=== PATIENT | female | born 1985 | race Asian ===

== ENCOUNTER 2017-07-10 02:40 | Inpatient (IN) | payer BC ==
[2017-07-10 03:31] LABS: BASO % 0.1 % (0-2.0); EOS % 0.4 % (0-4.5); HEMATOCRIT 34.1 % (32.4-45.2); HEMOGLOBIN 11.3 GM/dL (10.7-15.3); LYMPH % 17.3 % (8-40); MCH 28.6 pg (25.7-33.7); MCHC 33.2 g/dl (32.0-36.0); MEAN PLT VOLUME 9.9 fl (7.5-11.1); MONO % 5.3 % (3.8-10.2); NEUT % 76.9 % (42.8-82.8); PLATELET COUNT 286 K/MM3 (134-434); RBC 3.96 M/mm3 (3.60-5.2); RDW 14.5 % (11.6-15.6); WHITE BLOOD COUNT 10.7 K/mm3 (4.0-10.0)
[2017-07-10 03:44] LABS: INR 0.98 (0.82-1.09); PROTHROMBIN TIME (PATIENT) 11.1 SEC (9.7-13.0)
[2017-07-10 03:47] LABS: ACTIVATED PTT 26.9 SECONDS (26.9-34.4)
--- NOTE | 2017-07-10 03:48 | HP ---
Past Medical History - Admission History of Present Illness: 31 yo @ 39 2/7 wks by first trimester ultrasound, EDC 07/15/2017 complicated by: 1. Prior CD 2. Breech - s/p ultrasound 07/07/2017 - zara breech EFW 3112 g / 6 lb 14 oz (30%) 3. Travel to [facility] during - declined Zika screen Patient presents with chief complaint of contractions which began at 1730 and increased in frequency and intensity. She reports movement, denies leakage of fluid or vaginal bleeding. History Source: Patient - Past Medical History Cardiovascular: No: HTN Pulmonary: No: Asthma Gastrointestinal: No: GERD ...: 2 ...Para: 1 Heme/Onc: No: Anemia - Past Surgical History Past Surgical History: Yes: Hx Myomectomy: No Hx Transabdominal Cerclage: No - Alcohol/Substance Use Hx Alcohol Use: No - Social History History of Recent Travel: No Family Disease History - Family Disease History Family History: Denies Review of Systems - Review of Systems Constitutional: reports: No Symptoms Cardiovascular: reports: No Symptoms Gastrointestinal: reports: No Symptoms Genitourinary: reports: No Symptoms Breasts: reports: No Symptoms Reported Musculoskeletal: reports: No Symptoms Integumentary: reports: No Symptoms Neurological: reports: No Symptoms Hematology/Lymphatic: reports: No Symptoms Psychiatric: reports: No Symptoms Physical Exam - Maternity Constitutional: Yes: Well Nourished, No Distress, Calm Cardiovascular: Yes: Regular Rate and Rhythm Lungs: Clear to auscultation - Abdominal Exam/OB Fundal Height: 39 Number of Fetuses: Single Presentation: Breech Regularity: Regular Category: I Accelerations: Non-Uniform Decelerations: None - Vaginal Exam/OB Vaginal Bleediing: No Dilatation (cm): 1 Effacement (%): 20 Amniotic Membrane Status: Intact Station: -3 - Physical Exam Musculoskeletal: Yes: WNL Edema: No Integumentary: Yes: Body Piercing, Bruising, Erythema - Labs Lab Results: PNL: O pos, antibody neg; RPR NR; HIV neg; sequential screen 1 &2 neg; HBS Ag neg; HCV neg; GBS neg; GCT WNL Hemorrhage Risk Assessment - Risk Factors Medium Risk Factors: Yes: Prior , uterine surgery,or multiple laparotomies High Risk Factors: Yes: None Risk Score: 1 Risk Level: Medium Risk Assessment/Plan 31 yo @ 39 2/7 wks, labor, zara breech, prior CD for repeat CD 1. Admit to L&D 2. Consents reviewed and signed. Discussed risks including but not limited to infection, bleeding requiring transfusion and damage to surrounding organs such as the bowel or bladder. Discussed risk of injury to infant. Discussed risk of wound infection and separation. Discussed need for planning of future children and possibility of abnormal placentation. All questions answered. Patient expressed understanding. 3. GBS negative 4. Category I FHT 5. Nursing and anesthesia notified
[2017-07-10 03:51] LABS: ANION GAP 9 (8-16); BLOOD UREA NITROGEN 9 mg/dL (7-18); CALCIUM 8.5 mg/dL (8.5-10.1); CHLORIDE 105 mmol/L (98-107); CO2 21 mmol/L (21-32); CREATININE 0.6 mg/dL (0.55-1.02); GLUCOSE,RANDOM 81 mg/dL (74-106); POTASSIUM 4.2 mmol/L (3.5-5.1); SODIUM 135 mmol/L (136-145)
[2017-07-10] MEDS ORDERED: CITRIC ACID/SODIUM CITRATE 30 ML UNIT-DOSE CUP PO ONE (04:00)
[2017-07-10] MEDS ORDERED: OXYTOCIN 20 UNITS in 0.9% NS 20 UNIT/1,000 ML INFUS.BAG IV ONE (04:26)
[2017-07-10] MEDS ORDERED: ePHEDrine SULFATE 50 MG/1 ML AMPULE ONE (04:29)
[2017-07-10] MEDS ORDERED: morphine SULFATE/Preservative Free 0.5 MG/ML (1cc Syringe) ONE (04:29)
[2017-07-10] MEDS ORDERED: BUPIVACAINE 0.75% IN DEXTROSE/PF 2ML AMPULE NR ONE (04:31)
[2017-07-10] MEDS ORDERED: ceFAZolin SODIUM 1 GM VIAL ONE (04:33)
[2017-07-10] MEDS ORDERED: OXYTOCIN 10 UNITS/ML VIAL ONE (04:56)
[2017-07-10 05:01] VITALS: BMI 29.6
[2017-07-10 06:02] LABS: VENOUS PC02 55.1 mmHg (38-52); VENOUS PO2 37.8 mmHg (28-48)
[2017-07-10 06:03] LABS: VENOUS PH 7.17 (7.32-7.42)
[2017-07-10] MEDS ORDERED: METHYLERGONOVINE MALEATE 0.2 MG/1 ML AMP IM PRN (06:05)
--- NOTE | 2017-07-10 06:05 | PN ---
Delivery - Delivery Section: Repeat EBL (cc): 500 Delivery, Single - Condition of Infant Gender: Male Weight: 6 lb 14 oz - 1 Minute Total Score: 6 5 Minutes Total Score: 9 - [place] Feeding Plan Initial Plan: Elected not to breastfeed exclusively throughout hospitalization Remarks - Remarks Remarks: Surgeon: Patrick; Assist: Hipple Anesthesia: Spinal, Dr. Hansen Findings: Male , Right Sacrum Transverse, zara breech position, APGARs 6 , 9; wt 6 lb 14 oz; 18.5 inches; normal tubes and ovaries bilaterally Fluids: 1100 EBL: 500 UOP 500 Dictation [id number]
--- NOTE | 2017-07-10 06:11 | PN ---
Progress Note (short form) - Note Progress Note: Informed patient of needle stick injury with clean suture needle through soiled glove. Needle was removed from field. Patient gives consent to draw HIV, Hep B and Hep C
[2017-07-10] MEDS ORDERED: ONDANSETRON 4 MG/2 ML VIAL IVPUSH PRN (06:13)
[2017-07-10] MEDS ORDERED: DEXTROSE 5%-LACTATED RINGERS 1,000 ML IV SCH (06:15)
[2017-07-10] MEDS ORDERED: OXYTOCIN 20 UNITS in 0.9% NS 20 UNIT/1,000 ML INFUS.BAG IV SCH (06:15)
[2017-07-10] MEDS ORDERED: TUBERCULIN PPD 5 TU/0.1ML SYRINGE (IN PATIENT USE ONLY) ID ONE (08:45)
[2017-07-10] MEDS ORDERED: IBUPROFEN 800 MG/8 ML IJ IVPB PRN (12:35)
[2017-07-10] MEDS ORDERED: oxyCODONE HCL 5 MG TABLET PO PRN ×2 (12:37)
[2017-07-10] MEDS: ACETAMINOPHEN 325 MG TABLET (FP) PO PRN (23:30)
[2017-07-10] MEDS: IBUPROFEN 600 MG TABLET (FP) PO PRN (23:30)
[2017-07-11] MEDS: IBUPROFEN 600 MG TABLET (FP) PO PRN ×3 (03:05→20:51)
[2017-07-11] MEDS: ACETAMINOPHEN 325 MG TABLET (FP) PO PRN ×3 (03:06→20:51)
[2017-07-11] MEDS ORDERED: BISACODYL 10 MG SUPP.RECT RC PRN (06:05)
[2017-07-11 07:19] LABS: BASO % 0.3 % (0-2.0); EOS % 0.4 % (0-4.5); HEMATOCRIT 31.1 % (32.4-45.2); HEMOGLOBIN 10.4 GM/dL (10.7-15.3); LYMPH % 17.7 % (8-40); MCH 28.9 pg (25.7-33.7); MCHC 33.5 g/dl (32.0-36.0); MEAN CELL VOLUME 86.2 fl (80-96); MEAN PLT VOLUME 9.5 fl (7.5-11.1); MONO % 4.8 % (3.8-10.2); NEUT % 76.8 % (42.8-82.8); PLATELET COUNT 260 K/MM3 (134-434); RDW 14.1 % (11.6-15.6); WHITE BLOOD COUNT 9.2 K/mm3 (4.0-10.0)
--- NOTE | 2017-07-11 08:30 | PN ---
Post Progress Note - Subjective Subjective: Patient without acute complaints. Tolerating clears, without complaints of nausea or vomiting. No ambulation yet. Denies fevers or chills. without difficulty Pain well controlled Moreau removed this AM, voiding without issue. Passing flatus. Post Day: 1 Type of Delivery: Repeat C/S Vital Signs: Vital Signs Temperature 97.9 F 07/11/17 08:02 Pulse Rate 71 07/11/17 08:02 Respiratory Rate 20 07/11/17 08:02 Blood Pressure 106/64 07/11/17 08:02 O2 Sat by Pulse Oximetry (%) 100 07/10/17 06:30 Breast Exam: Yes: Soft Uterus: Yes: Fundus Firm Incision: Yes: Dressing dry and intact Abdomen/GI: Yes: Abdomen soft, Tender (mild incisional), Passing flatus, Tolerating PO. No: Abdominal Distention Lochia: Yes: Serosa Lochia, amount: Small Extremities: Yes: Calves non-tender. No: Edema Activity: Ambulating - Labs Labs: CBC WBC 9.2 K/mm3 (4.0-10.0) 07/11/17 06:57 RBC 3.60 M/mm3 (3.60-5.2) 07/11/17 06:57 Hgb 10.4 GM/dL (10.7-15.3) L 07/11/17 06:57 Hct 31.1 % (32.4-45.2) L 07/11/17 06:57 MCV 86.2 fl (80-96) 07/11/17 06:57 MCH 28.9 pg (25.7-33.7) 07/11/17 06:57 MCHC 33.5 g/dl (32.0-36.0) 07/11/17 06:57 RDW 14.1 % (11.6-15.6) 07/11/17 06:57 Plt Count 260 K/MM3 (134-434) 07/11/17 06:57 MPV 9.5 fl (7.5-11.1) 07/11/17 06:57 Neutrophils % 76.8 % (42.8-82.8) 07/11/17 06:57 Lymphocytes % 17.7 % (8-40) 07/11/17 06:57 Monocytes % 4.8 % (3.8-10.2) 07/11/17 06:57 Eosinophils % 0.4 % (0-4.5) 07/11/17 06:57 Basophils % 0.3 % (0-2.0) 07/11/17 06:57 Nucleated RBC % 0 % (0-0) 07/11/17 06:57 Assessment/Plan 31 yo PPD # 1 s/p repeat CD, afebrile, vital signs stable, donig well 1. Continue routine postoperative care. 2. AM CBC without signs of anemia 3. Rh positive status, no rhogam indicated. 4. Encourage ambulation and incentive spirometer use 5. Continue oral pain medication 6. Anticipate discharge home postoperative day #3 or #4
--- NOTE | 2017-07-11 08:44 | PN ---
Progress Note (short form) - Note Progress Note: Post op day#1.S/P C section under spinal anesthesia with duramorph uneventful.Patient stable and has little pain for which she is on medication.No any anesthesia related problem.Patient DC from the anesthesia care.
[2017-07-11] MEDS ORDERED: DIPHTH,PERTUSS(ACELL),TET 0.5 ML DISP.SYRIN IM ONE (10:00)
[2017-07-11] MEDS: SIMETHICONE 80 MG TAB.CHEW (FP) PO PRN ×2 (11:47→20:51)
--- NOTE | 2017-07-11 17:15 | PN ---
Progress Note (short form) - Note Progress Note: Patient states desires circumcision for infant. Discussed risks including infection, bleeding, damage to tip of penis, and unsatisfactory result, resulting in surgical repair or repeat circumcision. Patient expressed understanding and consents to procedure. Reviewed infants chart, normal genitalia per hose builder, MARISSA Zaragoza.
[2017-07-12] MEDS: SIMETHICONE 80 MG TAB.CHEW (FP) PO PRN ×4 (02:39→21:35)
[2017-07-12] MEDS: IBUPROFEN 600 MG TABLET (FP) PO PRN ×4 (02:39→21:36)
[2017-07-12] MEDS: ACETAMINOPHEN 325 MG TABLET (FP) PO PRN ×3 (02:40→21:35)
--- NOTE | 2017-07-12 10:07 | PN ---
Post Progress Note - Subjective Subjective: No complaints, ambulating well, pain is well controlled. Post Day: 2 Type of Delivery: Repeat C/S Vital Signs: Vital Signs Temperature 98.7 F 07/12/17 09:03 Pulse Rate 85 07/12/17 09:03 Respiratory Rate 20 07/12/17 09:03 Blood Pressure 105/76 07/12/17 09:03 O2 Sat by Pulse Oximetry (%) 100 07/10/17 06:30 Breast Exam: Yes: Soft Uterus: Yes: Fundus Firm, Fundus below umbilicus, Non-tender Incision: Yes: Dressing dry and intact, Sutures intact Abdomen/GI: Yes: Abdomen soft, Passing flatus, Tolerating PO Lochia: Yes: Rubra Lochia, amount: Small Extremities: Yes: Calves non-tender Perineum: Yes: Intact Activity: Ambulating - Labs Labs: CBC WBC 9.2 K/mm3 (4.0-10.0) 07/11/17 06:57 RBC 3.60 M/mm3 (3.60-5.2) 07/11/17 06:57 Hgb 10.4 GM/dL (10.7-15.3) L 07/11/17 06:57 Hct 31.1 % (32.4-45.2) L 07/11/17 06:57 MCV 86.2 fl (80-96) 07/11/17 06:57 MCH 28.9 pg (25.7-33.7) 07/11/17 06:57 MCHC 33.5 g/dl (32.0-36.0) 07/11/17 06:57 RDW 14.1 % (11.6-15.6) 07/11/17 06:57 Plt Count 260 K/MM3 (134-434) 07/11/17 06:57 MPV 9.5 fl (7.5-11.1) 07/11/17 06:57 Neutrophils % 76.8 % (42.8-82.8) 07/11/17 06:57 Lymphocytes % 17.7 % (8-40) 07/11/17 06:57 Monocytes % 4.8 % (3.8-10.2) 07/11/17 06:57 Eosinophils % 0.4 % (0-4.5) 07/11/17 06:57 Basophils % 0.3 % (0-2.0) 07/11/17 06:57 Nucleated RBC % 0 % (0-0) 07/11/17 06:57 Assessment/Plan 31yo P2 s/p repeat LT C/S, doing well stable, afebrile. The pt is asymptomatic for s/sxs of anemia. care instructions reviewed. Continue routine postop care. Ambulation encouraged.
--- NOTE | 2017-07-12 10:09 | OP ---
DATE OF OPERATION: 07/10/2017 PREOPERATIVE DIAGNOSIS: Intrauterine at 39 weeks, zara breech position, prior section, in labor. POSTOPERATIVE DIAGNOSIS: Intrauterine at 39 weeks, zara breech position, prior section, in labor. SURGEON: Susan Nguyen M.D. MARKETING PROFESSOR: Monet Mcclelland DO ANESTHESIOLOGIST: Evangelist Hansen DO ANESTHESIA: Spinal. ESTIMATED BLOOD LOSS: 500. URINE OUTPUT: 500. INTRAVENOUS FLUIDS GIVEN: 1100 mL. INDICATIONS: The patient is a 31-year-old 2, para 1, with a history of prior , with zara breech position on ultrasound, presenting with contractions, found to be in early labor. She was counseled regarding the risks, benefits, alternatives and complications of the procedure, including infection, bleeding, damage to surrounding organs, such as bowel and bladder, and injury to baby. She expressed understanding and was brought to the operating room. DESCRIPTION OF PROCEDURE: When anesthesia was found to be adequate, the patient was prepped and draped in the normal sterile fashion and placed in the dorsal supine position with a leftward tilt. An approximately 11-cm skin incision was made along the previous scar, and the scar was removed without difficulty. The incision was extended to the fascia, which was entered sharply and extended laterally using Hill scissors. Attention was brought to the inferior portion of the fascial incision, which was tented up using Louis clamps and resected off the underlying rectus muscles using the Hill scissors. Attention was brought to the superior portion of the fascial incision, where, in a similar fashion, it was tented up using Louis clamps and dissected off the underlying rectus muscles using Hill scissors. The rectus muscles were in the midline, and the peritoneal cavity was entered bluntly. The vesicouterine peritoneum was identified, entered sharply, and a bladder flap was created digitally. Hysterotomy was performed and extended laterally using bandage scissors. The 's buttocks were found to be in the right sacrum transverse, and this was brought to the hysterotomy site. The right shoulder was delivered without issue. The left shoulder was delivered without issue. Then the head was flexed, and the head was delivered without issue. The cord was clamped and cut. The was handed to awaiting NICU staff present for delivery. The hysterotomy was repaired using 0 Biosyn in running fashion with the 2nd layer was an imbricated layer. The vesicouterine peritoneum was reapproximated using 2-0 Biosyn in a running fashion. The fascia was closed using 0 Biosyn in a running fashion. The subcutaneous fat was closed using 0 Vicryl in a running fashion and 2-0 Vicryl in a running fashion. The skin was closed using 3-0 Vicryl in a subcuticular fashion. The patient tolerated the procedure well. Estimated blood loss was 500 mL. The patient was brought to the recovery room in stable condition. Adrian [id number] MTDD
[2017-07-12 16:21] LABS: HBsAG SCREEN Negative (Negative)
[2017-07-13] MEDS: ACETAMINOPHEN 325 MG TABLET (FP) PO PRN ×2 (05:00→10:18)
[2017-07-13] MEDS: IBUPROFEN 600 MG TABLET (FP) PO PRN ×2 (05:00→10:18)
[2017-07-13] MEDS: SIMETHICONE 80 MG TAB.CHEW (FP) PO PRN ×2 (05:01→10:19)
--- NOTE | 2017-07-13 07:48 | PN ---
Post Progress Note - Subjective Subjective: No complaints Post Day: 3 Type of Delivery: Repeat C/S Vital Signs: Vital Signs Temperature 98.3 F 07/12/17 21:29 Pulse Rate 88 07/12/17 21:29 Respiratory Rate 20 07/12/17 21:29 Blood Pressure 128/71 07/12/17 21:29 O2 Sat by Pulse Oximetry (%) 100 07/10/17 06:30 Breast Exam: Yes: Soft Uterus: Yes: Fundus Firm, Fundus below umbilicus, Non-tender Incision: Yes: Sutures intact Abdomen/GI: Yes: Abdomen soft, Passing flatus, Tolerating PO Lochia: Yes: Rubra Lochia, amount: Small Extremities: Yes: Calves non-tender Perineum: Yes: Intact Activity: Ambulating - Labs Labs: CBC WBC 9.2 K/mm3 (4.0-10.0) 07/11/17 06:57 RBC 3.60 M/mm3 (3.60-5.2) 07/11/17 06:57 Hgb 10.4 GM/dL (10.7-15.3) L 07/11/17 06:57 Hct 31.1 % (32.4-45.2) L 07/11/17 06:57 MCV 86.2 fl (80-96) 07/11/17 06:57 MCH 28.9 pg (25.7-33.7) 07/11/17 06:57 MCHC 33.5 g/dl (32.0-36.0) 07/11/17 06:57 RDW 14.1 % (11.6-15.6) 07/11/17 06:57 Plt Count 260 K/MM3 (134-434) 07/11/17 06:57 MPV 9.5 fl (7.5-11.1) 07/11/17 06:57 Neutrophils % 76.8 % (42.8-82.8) 07/11/17 06:57 Lymphocytes % 17.7 % (8-40) 07/11/17 06:57 Monocytes % 4.8 % (3.8-10.2) 07/11/17 06:57 Eosinophils % 0.4 % (0-4.5) 07/11/17 06:57 Basophils % 0.3 % (0-2.0) 07/11/17 06:57 Nucleated RBC % 0 % (0-0) 07/11/17 06:57 Assessment/Plan 31yo P2 s/p repeat LT C/S, doing well stable, afebrile. The pt is asymptomatic for s/sxs of anemia. care instructions reviewed. Continue routine postop care. Ambulation encouraged. Plan to d/c home today
[2017-07-13 09:01] LABS: BASO % 0.2 % (0-2.0); EOS % 0.9 % (0-4.5); HEMATOCRIT 30.9 % (32.4-45.2); HEMOGLOBIN 10.1 GM/dL (10.7-15.3); LYMPH % 12.4 % (8-40); MCH 28.8 pg (25.7-33.7); MCHC 32.7 g/dl (32.0-36.0); MEAN PLT VOLUME 9.4 fl (7.5-11.1); MONO % 4.1 % (3.8-10.2); NEUT % 82.4 % (42.8-82.8); PLATELET COUNT 292 K/MM3 (134-434); RBC 3.51 M/mm3 (3.60-5.2); RDW 14.5 % (11.6-15.6); WHITE BLOOD COUNT 10.3 K/mm3 (4.0-10.0)
[2017-07-13 09:23] VITALS: BP 125/87; PULSE 93; TEMP 97.8
--- NOTE | 2017-07-18 15:57 | PATH ---
Surgical Pathology Report Patient Name: MEHRAN TSE [facility]. Rec. 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 TRIVASCULAR CORD. MEMBRANES WITH NO DIAGNOSTIC ABNORMALITIES. Electronically Signed Margo Edwards M.D. Gross Description The specimen is received fresh labeled placenta and is a 449 gram, 23.0 x 14.0 x 2.5 cm. placenta with attached membranes and umbilical cord. The attached membranes are lam, translucent with focal opacities and insert marginally. The umbilical cord measures 16 cm. in length and averages 1 cm. in diameter. The cord inserts eccentrically, 3 cm. to the nearest margin. No true knots or strictures are identified. Cut surface of the umbilical cord reveals 3 vessels. The surface is oliva-blue with minimal fibrin deposition and appropriate caliber vessels. The maternal surface is red-brown with focal defects. Sectioning reveals red-brown, spongy parenchyma. No lesions are identified. Experimental Rocket Sled Mechanic sections are submitted in three cassettes as follows: 1- membrane rolls and umbilical cord; 2-3- full thickness sections of placenta. /07/15/2017 [facility]07/15/2017
== END 2017-07-13 11:15 | disposition home or self-care (01) | DRG 766 ==
LOC: JDEL 02:40 → JLDR 03:00 → J3W 08:11
PROVIDERS: ADMIT Obstetrics & Gynecology; ATTEND Obstetrics & Gynecology
PROC: 10D00Z1 Extraction of Products of Conception, Low, Open Approach (ICD-10-PCS; principal; 2017-07-10)
DX: O34.211 Maternal care for low transverse scar from previous cesarean delivery (principal); O32.1XX0 Maternal care for breech presentation, not applicable or unspecified; Z3A.39 39 weeks gestation of pregnancy; Z37.0 Single live birth
CPT/HCPCS: 36415; 71046-TC-FY; 80048; 82803; 85025; 85610; 85730; 86593; 86850; 86900; 86901; 87340; 87389; 88307-TC; 90715

== ENCOUNTER 2019-09-25 14:25 | Inpatient (IN) | payer BC ==
[2019-09-25] MEDS ORDERED: ELECTROLYTE-148 SOLN 500 ML IV ONE (15:00)
[2019-09-25 15:25] LABS: BASO % 0.2 % (0-2.0); EOS % 0.3 % (0-4.5); HEMOGLOBIN 9.1 GM/dL (10.7-15.3); LYMPH % 14.8 % (8-40); MCH 27.8 pg (25.7-33.7); MCHC 32.5 g/dl (32.0-36.0); MEAN CELL VOLUME 85.6 fl (80-96); MEAN PLT VOLUME 10.3 fl (7.5-11.1); NEUT % 78.7 % (42.8-82.8); PLATELET COUNT 206 K/MM3 (134-434); RBC 3.27 M/mm3 (3.60-5.2); RDW 14.7 % (11.6-15.6); WHITE BLOOD COUNT 8.5 K/mm3 (4.0-10.0)
[2019-09-25] MEDS ORDERED: ELECTROLYTE-148 SOLN 1,000 ML IV SCH ×2 (15:30→18:45)
[2019-09-25 15:39] LABS: INR 0.94 (0.83-1.09); PROTHROMBIN TIME (PATIENT) 11.1 SEC (9.7-13.0)
[2019-09-25 15:41] LABS: ACTIVATED PTT 25.3 SECONDS (25.2-36.5)
[2019-09-25 15:53] LABS: BLOOD UREA NITROGEN 11.8 mg/dL (7-18); CALCIUM 7.9 mg/dL (8.5-10.1); CREATININE 0.6 mg/dL (0.55-1.3); POTASSIUM 3.8 mmol/L (3.5-5.1)
[2019-09-25 16:14] VITALS: BMI 27.3
[2019-09-25] MEDS ORDERED: CITRIC ACID/SODIUM CITRATE 30 ML UNIT-DOSE CUP PO ONE (16:45)
[2019-09-25] MEDS ORDERED: morphine SULFATE/PF 0.5 MG/ML (2cc Syringe - QUVA) ONE (18:35)
--- NOTE | 2019-09-25 18:45 | HP ---
Past Medical History - Primary Care Physician PCP:: Shaheed Stahl - Admission Chief Complaint: 34yo P2 with EGA 38w6d with prior C/S x 2 admitted with spontaneous labor. History of Present Illness: Spontaneous labor. 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: Alzheimer's, CVA, Dementia, Migraine, Multiple Sclerosis, Peripheral Neuropathy, Parkinson's, Seizure, Syncope, TIA, Vertigo, Other Cardiovascular: No: AFIB, Aneurysm, Aortic Insufficiency, Aortic Stenosis, CAD, CHF, Deep Vein Thrombosis, HTN, Hyperlipdemia, IL, Mitral Insufficiency, Mitral Stenosis, Murmur, Pulmonary Hypertension, Other Pulmonary: No: Asthma, Bronchitis, Cancer, COPD, O2 Dependent, Pneumonia, Previously Intubated, Pulmonary Embolus, Pulmonary Fibrosis, Sleep Apnea, Other Gastrointestinal: No: Ascites, Cancer, Constipation, Crohn's Disease, Diverticulitis, Diverticulosis, Esophageal Varices, Gastritis, GERD, GI Bleed, Hemorrhoids, Hiatal Hernia, Inflamatory Bowel Disease, Irritable Bowel Disease, Pancreatitis, Peptic Ulcer Disease, Ulcerative Colitis, Other Hepatobiliary: No: Cirrhosis, Cholelithiasis, Cholecystitis, Choledocholithiasis, Hepatitis A, Hepatitis B, Hepatitis C, Other Renal/: No: Renal Failure, Renal Inusuff, BPH, Cancer, Hematuria, Hemodialysis, Neurogenic Bladder, Renal Calculi, UTI, Other Reproductive: No: Ectopic , Endometriosis, Fibroids, PID, Polycystic Ovary Syndrome, Postmenopausal, Other ...: 3 ...Para: 2 ...Term: 2 ...: 0 ...Spon : 0 ...Induced : 0 ...Living Children: 2 ...Multiple Gestation: 0 ...LMP: 12/24/18 ... Weeks Gestation by Dates: 38.6 ...EDC by Dates: 10/03/19 Heme/Onc: Yes: Anemia Infectious Disease: No: AIDS, C-Diff, Herpes Zoster, HIV, MRSA, STD's, Tuberculosis, VREF, Other Psych: No: Addictions, Anxiety, Bipolar, Depression, Panic, Psychosis, Schizophrenia, Other Musculoskeletal: No: Bursitis, Chronic low back pain, Hemiparesis, Hemiplegia, Osteoarthritis, Paraplegia, Other Rheumatology: No: Fibromyalgia, Gout, Lupus, Rheumatoid Arthritis, Sarcoidosis, Vasculitis, Other ENT: No: Allergic Rhinitis, Sinusitis, Other Endocrine: No: Shaan's Disease, Ida's Disease, Diabetes Insipidus, Diabetes Mellitus, Hyperparathyroidism, Hyperthyroidism, Hypothyroidism, Osteopenia, SIADH, Other Dermatology: No: Basal Cell, Cellulitis, Eczema, Melanoma, Psoriasis, Squamous Cell, Other - Past Surgical History Past Surgical History: Yes: Hx Myomectomy: No Hx Transabdominal Cerclage: No - Smoking History Smoking history: Never smoked Have you smoked in the past 12 months: No Aproximately how many cigarettes per day: 0 - Alcohol/Substance Use Hx Alcohol Use: No History of Substance Use: reports: None - Social History Usual Living Arrangement: Yes: With Spouse, With Child Do you think of yourself as: Straight/Heterosexual ADL: Independent Occupation: Front End Manager at [employer] History of Recent Travel: No Home Medications - Allergies Allergies/Adverse Reactions: Allergies Allergy/AdvReac Type Severity Reaction Status Date / Time No Known Allergies Allergy Verified 09/25/19 15:49 - Home Medications Home Medications: Ambulatory Orders No115/Iron/Folic Acid [ 19 Chewable Tablet] 1 each PO DAILY 09/25/19 Family Medical History Family History: Unremarkable Review of Systems - Review of Systems Constitutional: reports: No Symptoms Eyes: reports: No Symptoms HENT: reports: No Symptoms Neck: reports: No Symptoms Cardiovascular: reports: No Symptoms Respiratory: reports: No Symptoms Gastrointestinal: reports: No Symptoms Genitourinary: reports: No Symptoms Breasts: reports: No Symptoms Reported Musculoskeletal: reports: No Symptoms Integumentary: reports: No Symptoms Neurological: reports: No Symptoms Endocrine: reports: No Symptoms Hematology/Lymphatic: reports: No Symptoms Psychiatric: reports: No Symptoms Pain Intensity: 6 (contractions) Physical Exam - Maternity Vital Signs: Vital Signs Temperature 98.4 F 09/25/19 18:00 Pulse Rate 77 09/25/19 18:00 Respiratory Rate 09/25/19 18:00 Blood Pressure 135/80 09/25/19 18:00 O2 Sat by Pulse Oximetry (%) Constitutional: Yes: Well Nourished, No Distress, Calm Eyes: Yes: WNL, Conjunctiva Clear, EOM Intact HENT: Yes: WNL, Atraumatic, Normocephalic Neck: Yes: WNL, Supple, Trachea Midline Cardiovascular: Yes: WNL, Regular Rate and Rhythm Lungs: Clear to auscultation, Normal air movement - Abdominal Exam/OB Fundal Height: 39 Number of Fetuses: Single Presentation: Vertex Contractions: Yes Regularity: Irregular Intensity: Mild/Mod Monitor Mode: External Heart Rate (range): 140 Heart Rate Location: Midline Category: I Accelerations: Non-Uniform Decelerations: None - Vaginal Exam/OB Vaginal Bleeding: No Speculum Exam: No Dilatation (cm): 0 Effacement (%): 0 Amniotic Membrane Status: Intact Presentation: Vertex/Position Station: -4 - Physical Exam Musculoskeletal: Yes: WNL Extremities: Yes: WNL Edema: No Integumentary: Yes: WNL Deep Tendon Reflex Grade: Normal +2 ...Motor Strength: WNL Psychiatric: Yes: WNL, Alert, Oriented - Labs Lab Results: CBC, BMP 09/25/19 13:13 09/25/19 13:13 Hemorrhage Risk Assessment - Risk Factors Medium Risk Factors: Yes: Prior , uterine surgery,or multiple laparotomies, Hematocrit < 30% & other Risk Score: 2 Risk Level: High Risk Assessment/Plan: Cross x 2 units PRBC Imaging - Results Ultrasound: Report Reviewed Assessment/Plan 34yo P2 with EGA 38w6d with prior C/S x 2 admitted with spontaneous labor. The decision was made to proceed with delivery by C/S. We discussed the risks and benefits of C/S at length, including but not limited to scarring, pain, b leeding, infection, injury to underlying organs and structures, need for additional surgery to repair/treat any problems or complications, complications/injuries, etc. The pt verbalized her understanding and requested to proceed with surgery. The pt is aware that all surgeries have risks and no guarantees can be provided.
[2019-09-25] MEDS ORDERED: IBUPROFEN 800 MG/8 ML IJ IVPB PRN (20:53)
[2019-09-25] MEDS ORDERED: WITCH HAZEL 50% (TUCKS) 40 PAD/JAR PAD TP PRN (20:53)
[2019-09-25] MEDS ORDERED: METHYLERGONOVINE MALEATE 0.2 MG/1 ML AMP IM PRN (20:53)
[2019-09-25] MEDS ORDERED: BENZOCAINE 20% 57 GM BOTTLE TP PRN (20:53)
[2019-09-25] MEDS ORDERED: OXYTOCIN 20 UNITS in 0.9% NS 20 UNIT/1,000 ML INFUS.BAG IV SCH (21:00)
--- NOTE | 2019-09-25 21:16 | OP ---
Operative Note - Note: Operative Date: 09/25/19 Pre-Operative Diagnosis: at EGA 38w6d with spontaneous labor. Prior C/S x 2 Operation: Repeat LT C/S Findings: Live baby girl in vtx presentation. No meconium in amniotic fluid. Nuchal cord x 1. 9-9. Weight 6lb 7oz. Normal uterus, ovaries, tubes. Post-Operative Diagnosis: Same as Pre-op Surgeon: Shaheed Stahl Learning Operations Specialist: Marcio Blake Anesthesiologist/CENTER SALES AND SERVICE ASSOCIATE: Blanco Dixon Anesthesia: Spinal Specimens Removed: Placenta Estimated Blood Loss (mls): 600 Drains & Tubes with Location: Moreau Cath Drains, Volume Out (mls): 500 Blood Volume Replaced (mls): 0 Fluid Volume Replaced (mls): 1,400 Operative Report Dictated: Yes
[2019-09-26 08:33] LABS: BASO % 0.2 % (0-2.0); EOS % 0.3 % (0-4.5); HEMATOCRIT 29.5 % (32.4-45.2); HEMOGLOBIN 9.4 GM/dL (10.7-15.3); LYMPH % 12.2 % (8-40); MCH 27.5 pg (25.7-33.7); MEAN CELL VOLUME 85.9 fl (80-96); MEAN PLT VOLUME 10.4 fl (7.5-11.1); MONO % 4.3 % (3.8-10.2); PLATELET COUNT 222 K/MM3 (134-434); RBC 3.43 M/mm3 (3.60-5.2); RDW 14.8 % (11.6-15.6); WHITE BLOOD COUNT 10.4 K/mm3 (4.0-10.0)
[2019-09-26] MEDS: ENOXAPARIN NA (PORCINE) 40 MG/0.4 ML DISP.SYRIN SQ SCH (09:30)
[2019-09-26] MEDS: PRENATAL VITAMINS W/ FOLIC ACID TABLET (FP) PO SCH (09:38)
--- NOTE | 2019-09-26 11:00 | PN ---
Progress Note (short form) - Note Progress Note: Anesthesia postop note 34 y/o Fs/p spinal anesthesia/duramorph POD#1, vss, aaox3, pain well controlled, sensory motor intact distally. No anesthesia complications.
--- NOTE | 2019-09-26 11:12 | OP ---
DATE OF OPERATION: 09/25/2019 PREOPERATIVE DIAGNOSES: 1. at estimated gestational age of 38 weeks and 6 days. 2. Spontaneous labor. 3. Previous 2 sections. POSTOPERATIVE DIAGNOSES: 1. at estimated gestational age of 38 weeks and 6 days. 2. Spontaneous labor. 3. Previous 2 sections. PROCEDURE: Repeat low transverse section via Pfannenstiel skin incision. SURGEON: Marquita Stahl MD HIDE SELECTOR: JOYCE Goldman ANESTHESIOLOGIST: Blanco Dixon MD ANESTHESIA: Spinal. COMPLICATIONS: None. PATHOLOGY: Placenta. ESTIMATED BLOOD LOSS: 600 mL. INTRAVENOUS FLUIDS: 1400 mL. URINE OUTPUT: Clear urine 500 mL at the end of the procedure. FINDINGS: Live baby girl in vertex presentation. No meconium noted in amniotic fluids. There was a nuchal cord wrapped around once and released without difficulty. Apgars 9 and 9. Baby's weight 6 pounds and 7 ounces. Normal uterus, ovaries and fallopian tubes. PROCEDURE: The patient was met preoperatively. Risks, benefits and alternatives of surgery were discussed in details. All questions were answered. The consent form was reviewed and discussed. The patient verbalized her understanding and requested to proceed with the surgery. The patient was brought to the OR with the IV running. She was placed on the surgical table in the sitting position. The spinal anesthesia was achieved without difficulty. The patient was then placed in a supine position with a leftward tilt. A Moreau catheter was left to drain to gravity. The patient was prepped and draped in the usual sterile fashion. A timeout procedure was conducted as per standard protocol. The surgeons then proceeded with the operation. A Pfannenstiel skin incision was made along the prior scar. The incision was carried down to the level of fascia. The fascia was incised in the midline and the incision was extended bilaterally using Hill scissors. The fascia was dissected away from the rectus muscles superiorly and inferiorly using sharp dissection. The rectus muscles were in the midline using sharp dissection. The peritoneum was entered sharply. The peritoneal incision was extended superiorly and inferiorly using Metzenbaum scissors. The bladder peritoneum was then dissected away from the lower uterine segment using sharp dissection. The bladder was reflected downwards using a Buckner retractor. The lower uterine segment was incised transversely. The incision was extended bilaterally using bandage scissors. The baby was delivered from vertex presentation without complications. The umbilical cord was clamped and cut. The baby was crying spontaneously and was handed to the waiting landfill gas technician. The placenta was delivered with manual extraction. The placenta was sent to Pathology. The uterus was cleared of all clots and debris using laparotomy laps. The uterine incision was repaired using a 0 Biosyn suture. The uterine incision was imbricated using a secondary closure with a 0 Biosyn suture. Good hemostasis was noted. The bladder peritoneum was approximated using a 0 Biosyn suture. The operative site was irrigated using copious amounts of normal saline. Once the saline was aspirated good hemostasis was confirmed. The parietal peritoneum was then closed using a 2-0 chromic suture. The rectus muscles were approximated in the midline using several interrupted 2-0 chromic sutures. The fascia was closed using a 0 Vicryl suture with a running stitch. The subcutaneous adipose tissues were approximated using several interrupted 0 Vicryl sutures. The old skin scar was excised and the skin incision was approximated using a 4-0 Vicryl suture with a subcutaneous stitch. Sponge, lap, needle counts were correct. The patient tolerated procedure well. She was transferred to recovery room in stable condition and awake. MARQUITA STAHL M.D. [id number]
[2019-09-26] MEDS: IBUPROFEN 600 MG TABLET (FP) PO PRN ×2 (13:38→17:06)
[2019-09-26] MEDS: ACETAMINOPHEN 325 MG TABLET (FP) PO PRN ×2 (13:40→17:05)
[2019-09-26] MEDS: oxyCODONE HCL 5 MG TABLET PO PRN (20:00)
[2019-09-26] MEDS: SIMETHICONE 80 MG TAB.CHEW (FP) PO PRN (20:01)
[2019-09-26] MEDS ORDERED: BISACODYL 10 MG SUPP.RECT RC PRN (20:53)
[2019-09-27] MEDS: ACETAMINOPHEN 325 MG TABLET (FP) PO PRN ×5 (00:47→19:22)
[2019-09-27] MEDS: oxyCODONE HCL 5 MG TABLET PO PRN ×2 (00:47→19:22)
[2019-09-27] MEDS: SIMETHICONE 80 MG TAB.CHEW (FP) PO PRN ×4 (00:47→19:22)
[2019-09-27] MEDS: IBUPROFEN 600 MG TABLET (FP) PO PRN ×3 (04:15→14:15)
--- NOTE | 2019-09-27 09:18 | PN ---
Post Progress Note - Subjective Subjective: Patient without acute complaints. Reports tolerating oral intake without nausea or vomiting. Ambulating without dizziness. Denies fevers or chills. Pain well controlled with oral pain medication. without difficulty. Passing flatus. Post Day: 2 Type of Delivery: Repeat C/S Vital Signs: Vital Signs Temperature 98.1 F 09/26/19 21:47 Pulse Rate 79 09/26/19 21:47 Respiratory Rate 20 09/26/19 21:47 Blood Pressure 119/77 09/26/19 21:47 O2 Sat by Pulse Oximetry (%) 100 09/25/19 21:45 Breast Exam: Yes: Soft Uterus: Yes: Fundus Firm Incision: Yes: Sutures intact, Oozing (midline wiht clot; no active bleeding) Abdomen/GI: Yes: Abdomen soft, Tender (mild incisional), Passing flatus, Tolerating PO. No: Abdominal Distention Lochia: Yes: Rubra Lochia, amount: Moderate Extremities: Yes: Calves non-tender, Edema (trace) Activity: Ambulating - Labs Labs: CBC WBC 10.4 K/mm3 (4.0-10.0) H 09/26/19 07:36 RBC 3.43 M/mm3 (3.60-5.2) L 09/26/19 07:36 Hgb 9.4 GM/dL (10.7-15.3) L 09/26/19 07:36 Hct 29.5 % (32.4-45.2) L 09/26/19 07:36 MCV 85.9 fl (80-96) 09/26/19 07:36 MCH 27.5 pg (25.7-33.7) 09/26/19 07:36 MCHC 32.0 g/dl (32.0-36.0) 09/26/19 07:36 RDW 14.8 % (11.6-15.6) 09/26/19 07:36 Plt Count 222 K/MM3 (134-434) 09/26/19 07:36 MPV 10.4 fl (7.5-11.1) 09/26/19 07:36 Absolute Neuts (auto) 8.7 K/mm3 (1.5-8.0) H 09/26/19 07:36 Neutrophils % 83.0 % (42.8-82.8) H 09/26/19 07:36 Lymphocytes % 12.2 % (8-40) 09/26/19 07:36 Monocytes % 4.3 % (3.8-10.2) 09/26/19 07:36 Eosinophils % 0.3 % (0-4.5) 09/26/19 07:36 Basophils % 0.2 % (0-2.0) 09/26/19 07:36 Nucleated RBC % 0 % (0-0) 09/26/19 07:36 Assessment/Plan 34 yo POD # 2 s/p repeat CD, afebrile, vital signs stable, doing well, mild asymptomatic anemia, desiring DC home today 1. Continue routine postoperative care. 2. Encourage ambulation and incentive spirometer use 3. Continue oral pain medication 4. Patient encouraged to contact MD for: - Severe pain not controlled by oral pain medication - Fevers or chills - Nausea or vomiting, intolerance of oral intake - Incision redness, tenderness or discharge 5. Patient to follow up in office in 1-2 weeks for incision check, 4-6 weeks for visit
[2019-09-27] MEDS: ENOXAPARIN NA (PORCINE) 40 MG/0.4 ML DISP.SYRIN SQ SCH (09:47)
[2019-09-27] MEDS: PRENATAL VITAMINS W/ FOLIC ACID TABLET (FP) PO SCH (09:47)
--- NOTE | 2019-09-27 10:40 | DS ---
Physical Exam-DINING SERVICES MANAGER Vital Signs: Vital Signs Temperature 98.1 F 09/26/19 21:47 Pulse Rate 79 09/26/19 21:47 Respiratory Rate 20 09/26/19 21:47 Blood Pressure 119/77 09/26/19 21:47 O2 Sat by Pulse Oximetry (%) 100 09/25/19 21:45 Labs: CBC, BMP 09/26/19 07:36 09/25/19 13:13 Delivery - Delivery Type of Anesthesia: Spinal Episiotomy/Laceration: None Delivery, Single - Stages of Labor Date 1st Stage Initiatied: 09/25/19 Time 1st Stage Initiated: 13:00 Date of Delivery: 09/25/19 Time of Delivery: 20:00 Time Placenta Delivered: 20:02 - Condition of Infant Pipe Organ Mechanic/Business Analyst Consultant Present: Yes Name: Calderon Holman Gender: Female Weight: 6 lb 7 oz Total Hours ROM (Hrs/Mins): 7mins. - 1 Minute Total Score: 9 5 Minutes Total Score: 9 - [place] Feeding Plan Initial Plan: Exclusive throughout hospitalization Discharge Summary Problems reviewed: Yes Reason For Visit: Procedures: Principal: delivery Hospital Course: Patient presented in labor, underwent repeat CD POD # 1 she was ambulating, voiding with adequate pain control She was noted to have asymptomatic anemia She fulfilled all criteria for DC Home Condition: Good - Instructions Diet, Activity, Other Instructions: Follow up in 1-2 weeks for incision check; 4-6 wks for visit Physical activity Resume your normal everyday activity as tolerated no heavy lifting or exercise until seen by your surgeon. You may walk unlimited dorian of and climb stairs. You may resume driving the car when you feel safe and comfortable behind the wheel. No sexual activity as instructed. Wound care If you have a bandage, leave it on, and keep dry for 48-72 hours. After that time discard the outer bandage. If they are tapes on the skin under the out of bandage leave them in place. They will peel off in the next 7 to 10 days. Do Not Peel them off. You may shower the day after surgery. If there are tapes present on the skin, you may shower over them. Diet There are no dietary restrictions. Eat healthy, high-fiber foods. Drink 6 to 8 glasses of liquid each day. This will assist in keeping your bowels are regular. Pain management You may take Tylenol or acetaminophen or Ibuprofen as prescribed for moderate to severe pain. Call MD for any of the following: Severe pain not relieved by medication Fever of 101 or higher Excessive bleeding or drainage on dressing Inability to urinate Referrals: Shaheed Stahl MD [Staff Physician] - Disposition: HOME - Home Medications Comprehensive Discharge Medication List: Ambulatory Orders No115/Iron/Folic Acid [ 19 Chewable Tablet] 1 each PO DAILY 09/25/19 Prescription Drug Monitoring Program (I-STOP) results: I-STOP reviewed and no issues identified (Reference #: [id number])
[2019-09-27 10:51] VITALS: BP 118/79; PULSE 80; TEMP 97.9
--- NOTE | 2019-10-01 17:10 | PATH ---
Surgical Pathology Report Patient Name: MEHRAN TSE [facility]. Rec. #: [id number] /Age/Gender: 1985 (Age: 34) / F Account: [id number] Location: [facility] OBS/OUTPATIENT PHLEBOTOMIST Taken: 09/25/2019 Received: 09/26/2019 Reported: 10/01/2019 Physicians: Shaheed Stahl M.D. Specimen(s) Received PLACENTA Clinical History , 38.6 weeks gestation, previous Final Diagnosis PLACENTA, SECTION: 401 G THIRD TRIMESTER PLACENTA WITH TRIVASCULAR UMBILICAL CORD AND UNREMARKABLE PLACENTAL MEMBRANES. Electronically Signed Jelena Tai M.D. Gross Description The specimen is received fresh labeled placenta and is a 401 gram, 18.5 x 15.5 x 2.5 cm. placenta with attached membranes and umbilical cord. The attached membranes are lam, translucent with focal opacities and insert marginally. The umbilical cord measures 37 cm. in length and averages 0.9 cm. in diameter. The cord inserts eccentrically, 1 cm. to the nearest margin. No true knots or strictures are identified. Cut surface of the umbilical cord reveals 3 vessels. The surface is oliva-blue with minimal fibrin deposition and appropriate caliber vessels. The maternal surface is red-brown with focal defects. Sectioning reveals red-brown, spongy parenchyma. No lesions are identified. Dispatcher [employer] Power sections are submitted in three cassettes as follows: 1- membrane rolls and umbilical cord; 2-3- full thickness sections of placenta. 09/28/2019 [facility]2019
== END 2019-09-27 19:35 | disposition home or self-care (01) | DRG 788 ==
LOC: JLDR 14:25 → J3W 22:16
PROVIDERS: ADMIT Obstetrics & Gynecology; ATTEND Obstetrics & Gynecology
PROC: 10D00Z1 Extraction of Products of Conception, Low, Open Approach (ICD-10-PCS; principal; 2019-09-25)
DX: O34.211 Maternal care for low transverse scar from previous cesarean delivery (principal); N85.8 Other specified noninflammatory disorders of uterus; O99.02 Anemia complicating childbirth; Z3A.38 38 weeks gestation of pregnancy; Z37.0 Single live birth
CPT/HCPCS: 36415; 80048; 85025; 85610; 85730; 86780; 86850; 86900; 86901; 86922; 87389; 88307-TC